=== PATIENT | male | born 1990 | race African-American/Black ===

== ENCOUNTER 2023-08-28 20:55 | Emergency (ER) | payer MEDICAID, SELFPAY ==
[2023-08-28] MEDS ORDERED: Ipratropium/Albuterol 3 ML NEB ONE ×2 (21:17→22:43)
[2023-08-28 21:44] LABS: #Basophils 0.1 thou/uL (0.0-0.2); #Eosinphils 0.4 thou/uL (0.0-0.7); #Monocytes 0.6 thou/uL (0.11-0.59); #Neutrophils 7.7 thou/uL (1.40-6.50); %Basophils 0.5 % (0.0-1.0); %Eosinophils 2.8 % (0.0-10.0); %Lymphocytes 31.7 % (21.0-51.0); %Monocytes 4.8 % (0.0-10.0); Hematocrit 44.8 % (42.0-52.0); Hemoglobin 15.4 g/dL (14.0-18.0); Mean Corpuscular HGB CONC 34.4 g/dL (32.0-36.0); Mean Corpuscular Hemoglobin 31.4 pg (27.0-31.0); Mean Corpuscular Volume 91.4 fl (78.0-98.0); Mean Platelet Volume 11.7 fL (7.4-10.4); Platelet Count 215 10x3/uL (130-400); RBC Distribution Width 11.9 % (11.5-14.5); White Blood Cell (WBC) Count 12.8 10x3/uL (4.8-10.8)
[2023-08-28 22:11] LABS: ALT (SGPT) 10 U/L (8-55); AST (SGOT) 19 U/L (5-34); Albumin 4.3 g/dL (3.5-5.0); Alkaline Phosphatase 61 U/L (40-110); Anion Gap 16 mmol/L (10-20); BUN (Urea Nitrogen) 8 mg/dL (8.9-20.6); Bilirubin, Total 0.4 mg/dL (0.2-1.2); Calc. Creatinine Clearance 0 mL/min (70-130); Calcium 8.8 mg/dL (7.8-10.44); Carbon Dioxide 23 mmol/L (22-29); Chloride 104 mmol/L (98-107); Estimated GFR 92; Globulin 3.2 g/dL (2.4-3.5); Glucose 188 mg/dL (70-105); Potassium 3.5 mmol/L (3.5-5.1); Protein, Total 7.5 g/dL (6.0-8.3); Sodium 139 mmol/L (136-145)
== END 2023-08-28 23:18 | disposition home or self-care (01) ==
LOC: ERS 20:55
DX: J45.901 Unspecified asthma with (acute) exacerbation (principal)
CPT/HCPCS: 36415; 71045; 80053; 85025; J7620

== ENCOUNTER 2024-07-09 13:06 | Emergency (ER) | payer OTHER, SELFPAY ==
[2024-07-09] MEDS ORDERED: Cyclobenzaprine 10 MG TAB ONE (13:33)
[2024-07-09] MEDS ORDERED: Acetaminophen 500 MG TAB ONE (13:33)
== END 2024-07-09 14:07 ==
LOC: ERS 13:06 → EEVIPCON 13:06 → ERS 14:07
DX: S20.212A Contusion of left front wall of thorax, initial encounter (principal); M62.838 Other muscle spasm; Y04.0XXA Assault by unarmed brawl or fight, initial encounter; Z55.0 Illiteracy and low-level literacy
CPT/HCPCS: 71045; 93005